=== PATIENT | female | born 1990 | race Caucasian/White ===

== ENCOUNTER 2018-04-18 16:23 | Emergency (ER) | END 2018-04-18 16:45 | disposition home or self-care (01) ==

== ENCOUNTER 2018-09-03 16:28 | Emergency (ER) | END 2018-09-03 20:25 | disposition left against medical advice (07) ==

== ENCOUNTER 2019-02-21 11:17 | Outpatient (CLI) | payer MEDICAID ==
[~2019-02-21] VITALS: Ht 157.5 cm; Wt 84.3 kg
[~2019-02-21 11:17] MED LIST: BEN25 PO; CEPH-443 PO; PNV1TABL43 PO
[2019-02-21 11:23] VITALS: Ht 157.5 cm; Wt 84.3 kg
--- NOTE | 2019-02-21 14:14 | PN ---
Triage Information Date/Time 02/21/2019 Reason for visit: Patient was sent in from clinic because of mild elevation of blood pressure and was complaining of decreased movement Weeks of Gestation 34+ weeks /Para 2 para 1 Additional information Patient has history of early termination at 34 weeks because of PIH Currently patient is denying headache blurred vision or epigastric pain Objective Blood pressures were all within normal limits during hospital stay Blood pressures were taken with patient in semi-negron position Heart Rate: 140's Heart Rate Comments Reactive Contractions: None Exam Deferred Results/Medications Result Diagram: 02/21/19 1142 02/21/19 1142 Results 24 hrs Laboratory Tests Test 02/21/19 11:28 02/21/19 11:42 Urine Color YELLOW Urine Clarity CLOUDY A Urine pH 7.0 Urine Specific [place] 1.009 Urine Ketones NEGATIVE Urine Nitrite NEGATIVE Urine Bilirubin NEGATIVE Urine Urobilinogen NEGATIVE Urine Leukocyte Esterase TRACE A Urine Microscopic RBC 1 Urine Microscopic WBC 3 Urine Bacteria FEW A Urine Hemoglobin NEGATIVE Urine Glucose NEGATIVE Urine Total Protein NEGATIVE White Blood Count 6.5 Red Blood Count 3.96 L Hemoglobin 11.7 L Hematocrit 35.3 L Mean Corpuscular Volume 89.1 Mean Corpuscular Hemoglobin 29.5 Mean Corpuscular Hemoglobin Concent 33.1 Red Cell Distribution Width 12.3 Platelet Count 206 Mean Platelet Volume 10.6 H Immature Granulocytes % 1.500 H Neutrophils % 69.7 Lymphocytes % 18.4 Monocytes % 9.0 Eosinophils % 0.9 Basophils % 0.5 Nucleated Red Blood Cells % 0.0 Immature Granulocytes # 0.100 H Neutrophils # 4.5 Lymphocytes # 1.2 Monocytes # 0.6 Eosinophils # 0.1 Basophils # 0.0 Nucleated Red Blood Cells # 0.0 Prothrombin Time 12.3 Prothrombin Time Ratio 1.0 INR International Normalized Ratio 0.90 Activated Partial Thromboplast Time 27.5 Sodium Level 138 Potassium Level 4.3 Chloride Level 108 Carbon Dioxide Level 23 Anion Gap 7 Blood Urea Nitrogen 9 Creatinine 0.50 Est Glomerular Filtrat Rate mL/min > 60 Glucose Level 100 Uric Acid 2.9 L Calcium Level 9.8 Total Bilirubin 0.1 L Direct Bilirubin 0.00 Indirect Bilirubin 0.1 Aspartate Amino Transf (AST/SGOT) 30 Alanine Aminotransferase (ALT/SGPT) 32 Alkaline Phosphatase 161 H Total Protein 6.6 Albumin 3.3 Globulin 3.30 H Albumin/Globulin Ratio 1.00 Imaging Results Normal biophysical profile. Disposition: Discharge Assessment/Plan Will discharge home and follow patient in clinic as routine DAHLIA BLACKBURN MD Feb 21, 2019 14:14
--- NOTE | 2019-02-21 18:39 | TRIAGE ---
OB Triage Datetime Report Generated by CPN: 02/21/2019 18:39 Datetime: 02/21/2019 14:30 Stage of : OB Triage Maternal Assessment Level of Consciousness: Fully Conscious DTR's/Clonus: DTRs 1+ Headache: Denies Breath Sounds, Left: Clear and Equal Breath Sounds, Right: Clear and Equal Nausea/Vomiting: Denies RUQ Epigastric Pain: Denies Monitor Mode: External Resting Tone [place]: Relaxed Heart Rate FHR Baseline Rate: 135 Monitor Mode: External US Variability: Moderate 6-25 bpm Accelerations: 15X15 Decelerations: None Category: Category I Pain Assessment Pain Scale: 0 Pain Presence: None/Denies Pain Type: N/A Pain Goal: 3 Vaginal Exam Membrane Status: Intact Datetime: 02/21/2019 13:30 Stage of : OB Triage Maternal Assessment Level of Consciousness: Fully Conscious DTR's/Clonus: DTRs 1+ Headache: Denies Breath Sounds, Left: Clear and Equal Breath Sounds, Right: Clear and Equal Nausea/Vomiting: Denies RUQ Epigastric Pain: Denies Monitor Mode: External Resting Tone [place]: Relaxed Heart Rate FHR Baseline Rate: 135 Monitor Mode: External US Variability: Moderate 6-25 bpm Accelerations: 15X15 Decelerations: None Category: Category I Pain Assessment Pain Scale: 0 Pain Presence: None/Denies Pain Type: N/A Pain Goal: 3 Vaginal Exam Membrane Status: Intact Datetime: 02/21/2019 12:30 Stage of : OB Triage Maternal Assessment Level of Consciousness: Fully Conscious DTR's/Clonus: DTRs 1+ Headache: Denies Breath Sounds, Left: Clear and Equal Breath Sounds, Right: Clear and Equal Nausea/Vomiting: Denies RUQ Epigastric Pain: Denies Monitor Mode: External Resting Tone [place]: Relaxed Heart Rate FHR Baseline Rate: 135 Monitor Mode: External US Variability: Moderate 6-25 bpm Accelerations: 15X15 Decelerations: None Category: Category I Pain Assessment Pain Scale: 0 Pain Presence: None/Denies Pain Type: N/A Pain Goal: 3 Vaginal Exam Membrane Status: Intact Datetime: 02/21/2019 11:52 Maternal Assessment Level of Consciousness: Fully Conscious DTR's/Clonus: DTRs 1+ Headache: Denies Blurred Vision: No Respiratory Effort: Unlabored Breath Sounds, Left: Clear and Equal Breath Sounds, Right: Clear and Equal Nausea/Vomiting: Denies RUQ Epigastric Pain: Denies Facial Edema: None Labor Evaluation Frequency: X2 Monitor Mode: External Duration (sec)2399: 60-70 Quality: Mild Pattern: Normal: <= 5 Contractions in 10 Minutes Resting Tone [place]: Relaxed Heart Rate FHR Baseline Rate: 145 Monitor Mode: External US Variability: Moderate 6-25 bpm Accelerations: 15X15 Decelerations: None Category: Category I Pain Assessment Pain Scale: 0 Pain Presence: None/Denies Pain Type: N/A Pain Goal: 3 Vaginal Exam Membrane Status: Intact Datetime: 02/21/2019 11:20 Stage of : OB Triage Assessment Type: Triage Maternal Assessment Level of Consciousness: Fully Conscious DTR's/Clonus: DTRs 2+; No Clonus Headache: Denies Blurred Vision: No Respiratory Effort: Unlabored; Regular Rhythm; Equal Expansion Breath Sounds, Left: Clear and Equal Breath Sounds, Right: Clear and Equal Nausea/Vomiting: Denies RUQ Epigastric Pain: Denies Facial Edema: None Fall Risk Assessment History of Falling: (0) No Secondary Diagnosis: (0) No Ambulatory Aid: (0) Bedrest/Nurse Assist IV Therapy: (0) No Gait: (0) Normal/Bedrest/Immobile Mental Status: (0) Oriented to Own Ability Fall Score: 0 Fall Risk Score Definition: No Risk: No action required Datetime: 02/21/2019 11:19 Time of Arrival: 02/21/2019 11:19 EGA: 34.2 Arrived By: Ambulatory Arrived From: Office Chief Complaint: PT CAME IN C/O DFM AND HAVING HIGH B/P AT CLINIC. PT SENIES HAVING EPIGASTRIC PAIN , HEADACHE, BLURRED VISION OR GENERALIZED SWELLING. Movement: Present Contractions: Denies/Absent Rupture of Membranes: Denies Vaginal Discharge: Denies Recent Sexual Intercouse: Denies Abdominal Trauma: Not Applicable Patient Complaints: Other Additional Patient Complaints: NONE Time Provider Notified: 02/21/2019 11:30 Provider Notified: HELENA Initial Plan: TR PANEL AND NST AND BPP
== END 2019-02-21 14:37 | disposition home or self-care (01) ==
LOC: L-D 11:17 → OBT 11:17
PROVIDERS: ATTEND Obstetrics & Gynecology
DX: O36.8130 Decreased fetal movements, third trimester, not applicable or unspecified (principal); O13.3 Gestational [pregnancy-induced] hypertension without significant proteinuria, third trimester; O09.93 Supervision of high risk pregnancy, unspecified, third trimester; Z3A.34 34 weeks gestation of pregnancy
CPT/HCPCS: 76818; 80053; 81001; 84560; 85025; 85610; 85730; Z7500; G0463

== ENCOUNTER 2019-03-31 06:19 | Inpatient (IN) | payer MEDICAID ==
[~2019-03-31] VITALS: Ht 167.6 cm; Wt 88.9 kg
[~2019-03-31 06:19] MED LIST changes: -BEN25 PO; -CEPH-443 PO
[2019-03-31 06:29] VITALS: BP 184/90; PULSE 62; RESP 18; Ht 167.6 cm; Wt 88.9 kg
[2019-03-31] MEDS ORDERED: LACTATED RINGER'S 1,000 ML IV SCH (06:48)
[2019-03-31] MEDS ORDERED: MAGNESIUM SULFATE 4 GM/100 ML 100 ML IV ONE (07:00)
[2019-03-31] MEDS ORDERED: OXYTOCIN 30 UNITS/LR 500 ML IV SCH ×2 (07:00)
[2019-03-31] MEDS ORDERED: METHYLERGONOVINE 0.2 MG INJ IM PRN (07:00)
[2019-03-31] MEDS ORDERED: BUTORPHANOL 2 MG INJ IV PRN (07:00)
[2019-03-31] MEDS ORDERED: LIDOCAINE 1% (MPF) 30 ML INJ INJ PRN (07:00)
[2019-03-31] MEDS ORDERED: CARBOPROST 250 MCG INJ IM PRN (07:00)
[2019-03-31] MEDS ORDERED: MISOPROSTOL 200 MCG TAB PR PRN (07:00)
[2019-03-31] MEDS ORDERED: OXYTOCIN 30 UNITS/LR 500 ML IV PRN (07:00)
[2019-03-31] MEDS: LACTATED RINGER'S 1,000 ML IV SCH ×3 (07:30→19:20)
--- NOTE | 2019-03-31 07:33 | TRIAGE ---
OB Triage Datetime Report Generated by CPN: 03/31/2019 07:32 Datetime: 03/31/2019 06:38 Vaginal Exam Dilatation (cms): 1.5 Effacement (%): 70 Station: -3 Exam By: SOLOMON Vaginal Bleeding: Normal Show Cervix, Consistency: Soft Cervix, Position: Posterior Presentation 'A': Cephalic Datetime: 03/31/2019 06:34 Stage of : OB Triage Maternal Assessment Level of Consciousness: Fully Conscious DTR's/Clonus: DTRs 2+; No Clonus Headache: Denies Blurred Vision: No Respiratory Effort: Unlabored; Regular Rhythm; Equal Expansion Breath Sounds, Left: Clear and Equal Breath Sounds, Right: Clear and Equal Nausea/Vomiting: Denies RUQ Epigastric Pain: Denies Facial Edema: None Temperature Route: Axillary Fall Risk Assessment History of Falling: (0) No Secondary Diagnosis: (0) No Ambulatory Aid: (0) Bedrest/Nurse Assist Gait: (0) Normal/Bedrest/Immobile Mental Status: (0) Oriented to Own Ability Datetime: 03/31/2019 06:21 Labor Evaluation Frequency: IRREGULAR Monitor Mode: External Quality: Mild Pattern: Normal: <= 5 Contractions in 10 Minutes Resting Tone [place]: Relaxed Heart Rate FHR Baseline Rate: 145 Monitor Mode: External US Datetime: 02/21/2019 14:32 Time of Arrival: 03/31/2019 06:07 EGA: 39.5 Arrived By: Ambulatory Arrived From: Home Chief Complaint: BLEEDING Movement: Decreased Contractions: Irregular Rupture of Membranes: Denies Vaginal Bleeding: Normal Show Vaginal Discharge: Denies Recent Sexual Intercouse: Denies Abdominal Trauma: Not Applicable Patient Complaints: Contractions Time Provider Notified: 03/31/2019 06:40 Provider Notified: Initial Plan: EFM, VS, VE, ADMIT TO l_D START MAGNESIUM SULFATE, PIH PANEL Datetime: 02/21/2019 11:20 Fall Score: 0 Fall Risk Score Definition: No Risk: No action required Datetime: 02/21/2019 11:19 EGA: 34.2
[2019-03-31] MEDS: MAGNESIUM SULFATE 20 GM/500 ML 500 ML IV SCH ×2 (08:59→19:06)
[2019-03-31] MEDS: OXYTOCIN 30 UNITS/LR 500 ML IV SCH (11:31)
--- NOTE | 2019-03-31 12:18 | HP ---
Date/Time of Note Date/Time of Note DATE: 03/31/19 TIME: 12:14 OB - History Hx of Present Free Text/Dictation 28-year-old female 2 para 1 at 39+ weeks gestation admitted complaining of onset spotting early a.m. 526 She also complains of decreased movement Chief Complaint: Spotting and decreased movement Last Menstrual Period: Jun 26, 2018 Estimated Due Date: April 02, 2019 : 2 Para: 1 Care: Good Care Ultrasounds: Normal mid trimester US Obstetrical Complications: None Medical Complications: None Past Family/Social History * Past Medical, Surgical, Family and Obstetric Histories reviewed from chart. Blood Type: O+ Rubella: immune RPR/VDRL: Negative GBS Status: Negative HBsAG: Negative OB Admission Exam Vital Signs Vital Signs Vital Signs Date Temp Pulse Resp B/P (MAP) Pulse Ox O2 O2 Flow FiO2 Time Delivery Rate 03/31/19 98.3 62 18 184/90 06:29 (121) Physical Exam HEENT: WNL Heart: Rhythm Normal Lungs: Clear, Equal Abdomen: WNL Extremities: Normal Reflexes: Normal Cervical Dilatation: 1cm Effacement: 50% Station: -3 Membranes: Intact Heart Rate: 140's Accelerations: Accelerations Present Decelerations: No Decelerations Varibility: Marked Contractions on Admission: < 5 Minutes Apart Date/Time Contractions Began: 03/31/2019 at 6 AM Frequency of Contractions: Every 2 to 3 minutes Duration: Over 1 minute Intensity: Moderate Last 72 hours Lab Results CBC & BMP 03/31/19 06:25 Liver Function Test 03/31/19 06:25 Alanine Aminotransferase (ALT/SGPT) 42 Albumin 3.2 L Alkaline Phosphatase 230 H Aspartate Amino Transf (AST/SGOT) 32 Direct Bilirubin 0.00 Total Protein 6.2 OB Assessment/Plan Other Assessment: Term gestation Labor contractions -induced hypertension by blood pressure criteria Other plan: Started patient on magnesium sulfate for seizure prophylaxis Augment labor with Pitocin if needed DAHLIA BLACKBURN MD March 31, 2019 12:18
[2019-03-31] MEDS ORDERED: FENTAnyl 2MCG/ML-ROPIV 0.2% 100 ML ONE (18:51)
--- NOTE | 2019-03-31 20:09 | PREAC ---
Date/Time of Note Date/Time of Note DATE: 03/31/19 TIME: 20:07 Anesthesia Eval and Record Evaluation Time Pre-Procedure Interview DATE: 03/31/19 TIME: 18:23 Age 28 Sex female NPO: 8 hrs Preoperative diagnosis iup @ 39 + wks., , pih by bp criteria, labor Planned procedure dc Past Medical History Past Medical History: Includes Cardio: HTN, Other (pih) : : (2), Para: (1), Gestational age: (39 + wks.), PIH Surgery & Anesthesia Issues No known issue Meds Anticoagulation: No Beta Jamey within 24 hr: No Reason Beta Jaemy not given: Pt. not on B-Jamey Reported Medications Vit/Fe Fumarate/Fa* ( Vitamin Tablet*) 1 Tab Tablet, 1 TAB PO DAILY 02/13/14 Current Medications Lactated Ringer's 1,000 ml @ 125 mls/hr Q8H IV Last administered on 03/31/19at 19:20; Admin Dose 125 MLS/HR; Start 03/31/19 at 07:00 Lidocaine (Xylocaine 1% (Mpf)) 30 ml ONCE PRN INJ .EPISIOTOMY; Start 03/31/19 at 07:00 Oxytocin/Lactated Ringer's 500 ml @ 500 mls/hr ONCE POST IV ; Start 03/31/19 at 07:00 Oxytocin/Lactated Ringer's 500 ml @ 125 mls/hr POST IV ; Start 03/31/19 at 07:00 Oxytocin/Lactated Ringer's 500 ml @ 0 mls/hr ONCE PRN IV .VAGINAL BLEEDING; Start 03/31/19 at 07:00 Methylergonovine Maleate (Methergine) 0.2 mg ONCE PRN IM .VAGINAL BLEEDING; Start 03/31/19 at 07:00 Carboprost Tromethamine (Hemabate) 250 mcg ONCE PRN IM .VAGINAL BLEEDING; Start 03/31/19 at 07:00 Misoprostol (Cytotec) 1,000 mcg ONCE PRN [place] .VAGINAL BLEEDING; Start 03/31/19 at 07:00 Magnesium Sulfate 500 ml @ 50 mls/hr Q10H IV Last administered on 03/31/19at 19:06; Admin Dose 50 MLS/HR; Start 03/31/19 at 06:48 Butorphanol Tartrate (Stadol) 2 mg Q2H PRN IV PAIN; Start 03/31/19 at 07:00 Oxytocin/Lactated Ringer's 500 ml @ 0 mls/hr FOR AUGMENTATION IV Last administered on 03/31/19at 11:31; Admin Dose 1 MLS/HR; Start 03/31/19 at 11:00 Meds reviewed: Yes Allergies Coded Allergies: No Known Drug Allergies (Unverified Allergy, Unknown, 03/31/19) Allergies Reviewed: Yes Labs/Studies Labs Reviewed: Reviewed by anesthesiologist Result Diagram: 03/31/1962403/31/1925 Laboratory Tests 03/31/19 06:25 Blood Bank Test 03/31/19 06:25 Antibody Screen NEGATIVE Blood Type O POSITIVE Rh Immune Globulin Candidate NO test: Positive Studies: ECG (n/a), CXR (n/a) Pre-procedure Exam Last vitals Vital Signs Date Temp Pulse Resp B/P (MAP) Pulse Ox O2 O2 Flow FiO2 Time Delivery Rate 03/31/19 98.3 62 18 184/90 06:29 (121) Airway: Adequate mouth opening, Adequate thyromental dist Mallampati: Mallampati II Teeth: Normal Lung: Normal Heart: Normal ASA Physical Status ASA physical status: 3 Emergency: E Planned Anesthetic Neuraxial: Epidural Planned Pain Management Epidural, Local by surgeon Pre-operative Attestations Prior to commencing anesthesia and surgery, the patient was re-evaluated, there was verification of: *The patient's identity *The results of appropriate recent lab work and preoperative vital signs *The above evaluation not changing prior to induction *Anesthetic plan, risk benefits, alternative and complications discussed with patient/family; questions answered; patient/family understands, accepts and wishes to proceed. Construction Framer used LEILA KIRBY MD March 31, 2019 20:09
[2019-03-31] MEDS ORDERED: EPHEDrine 25 MG/5 ML SYG ONE (21:35)
[2019-03-31] MEDS ORDERED: OXYTOCIN 30 UNITS/LR 500 ML IV ONE ×2 (21:37)
[2019-04-01] VITALS (11 sets, daily range): BP systolic 116–137; BP diastolic 57–84; PULSE 90–123; RESP 17–18
[2019-04-01] MEDS: MAGNESIUM SULFATE 20 GM/500 ML 500 ML IV SCH (03:23)
[2019-04-01] MEDS: OXYTOCIN 30 UNITS/LR 500 ML IV SCH (03:31)
[2019-04-01] MEDS ORDERED: FENTAnyl 2MCG/ML-ROPIV 0.2% 100 ML ONE (03:47)
[2019-04-01] MEDS ORDERED: NALOXONE (0.4 MG/ML) INJ IV PRN (04:00)
[2019-04-01] MEDS ORDERED: MINERAL OIL LIGHT 10 ML VIAL TOP PRN (04:00)
[2019-04-01] MEDS ORDERED: ONDANSETRON 4 MG INJ IV PRN (04:00)
[2019-04-01] MEDS: FENTAnyl 2MCG/ML-ROPIV 0.2% 100 ML BAG EPI SCH ×2 (04:10→10:27)
[2019-04-01] MEDS: LACTATED RINGER'S 1,000 ML IV SCH (08:53)
--- NOTE | 2019-04-01 12:03 | LDN ---
Date/Time of Note Date/Time of Note DATE: 04/01/19 TIME: 12:02 Delivery Summary Normal spontaneous vaginal delivery of a viable over intact perineum Weeks of Gestation 39 weeks and 6 days Placenta Delivered: Spontaneously, Intact & Complete Meconium: none Episiotomy: No Perineal laceration: 0 Laceration repair: First-degree perineal laceration was repaired in layers using 2-0 chromic on a CT1 needle Anesthesia type: Epidural Sponge & Needle done & correct: Yes All needle counts correct: Yes Any foreign bodies felt in the: No Infant Delivery Information Sex Sex: male Apgars 1 Minute: 9 5 Minute: 9 Suctioning Nose & mouth suctioned at roderick: Yes Delee suction performed: No Umbilical Cord Umbilical cord with: 3 Vessels Cord presentations: no nuchal cord Cord Blood was obtained: Yes Mother & Baby Disposition Disposition Mom & Baby to Maternity; Good: Yes (Mother and baby were recovered in good condition) Mom transferred to: Other (Maternity) Baby to NICU: No DAHLIA BLACKBURN MD April 01, 2019 12:03
[2019-04-01] MEDS ORDERED: KETOROLAC 30 MG INJ IV STA ×2 (12:04→12:07)
[2019-04-01] MEDS ORDERED: ACETAMINOPHEN 500 MG TAB PO STA ×2 (12:04→12:07)
--- NOTE | 2019-04-01 13:10 | PAC ---
Date/Time of Note Date/Time of Note DATE: 04/01/19 TIME: 13:09 Post-Anesthesia Notes Post-Anesthesia Note Last documented vital signs Vital Signs Date Temp Pulse Resp B/P (MAP) Pulse Ox O2 O2 Flow FiO2 Time Delivery Rate 03/31/19 98.3 62 18 184/90 06:29 (121) Activity: WNL Respiratory function: WNL Cardiovascular function: WNL Mental status: Baseline Pain reasonably controlled: Yes Hydration appropriate: Yes Nausea/Vomiting absent: Yes LEILA KIRBY MD April 01, 2019 13:10
[2019-04-01] MEDS ORDERED: MAGNESIUM SULFATE 20 GM/500 ML 500 ML IV SCH ×3 (13:48→17:12)
[2019-04-01] MEDS ORDERED: METHYLERGONOVINE 0.2 MG INJ IM PRN (14:00)
[2019-04-01] MEDS ORDERED: HYDROCODONE/APAP (5/325) TAB PO PRN ×2 (14:00)
[2019-04-01] MEDS ORDERED: BENZOCAINE 20% 56 ML SPRAY TOP PRN (14:00)
[2019-04-01] MEDS ORDERED: DIBUCAINE 1% 30 GM OINT TOP PRN (14:00)
[2019-04-01] MEDS ORDERED: OXYTOCIN 30 UNITS/LR 500 ML IV PRN (14:00)
[2019-04-01] MEDS ORDERED: ZOLPIDEM 5 MG TAB PO PRN (14:00)
[2019-04-01] MEDS ORDERED: WITCH HAZEL/GLYCERIN PAD PR PRN (14:00)
[2019-04-01] MEDS ORDERED: MISOPROSTOL 200 MCG TAB PR PRN (14:00)
[2019-04-01] MEDS ORDERED: CARBOPROST 250 MCG INJ IM PRN (14:00)
[2019-04-01] MEDS ORDERED: LANOLIN HPA 1 PKT TOP PRN (14:00)
[2019-04-01] MEDS ORDERED: MAGNESIUM SULFATE 4 GM/100 ML 100 ML IV SCH ×2 (17:00→17:30)
[2019-04-01] MEDS ORDERED: NACL 0.9% 3 ML SYG IV SCH ×2 (17:00→17:30)
[2019-04-01] MEDS ORDERED: CA GLUCONATE (GM) 10% 10ML INJ IV PRN ×2 (17:00→17:30)
[2019-04-01] MEDS: CEPHALEXIN 500 MG CAP PO SCH ×2 (17:24→23:39)
[2019-04-01] MEDS: LACTATED RINGER'S 1,000 ML IV* SCH ×2 (17:29→21:48)
[2019-04-01] MEDS: IBUPROFEN 600 MG TAB PO SCH ×2 (17:39→23:39)
[2019-04-01] MEDS: SENNA/DOCUSATE NA (8.6MG/50MG) TAB PO SCH (21:00)
[2019-04-01] MEDS: MAGNESIUM HYDROXIDE 30ML CUP PO SCH (21:00)
[2019-04-02] VITALS (14 sets, daily range): BP systolic 107–131; BP diastolic 57–79; PULSE 78–94; RESP 17–20
[2019-04-02] MEDS: IBUPROFEN 600 MG TAB PO SCH ×4 (06:39→23:59)
[2019-04-02] MEDS: CEPHALEXIN 500 MG CAP PO SCH ×4 (06:39→23:59)
[2019-04-02] MEDS: LACTATED RINGER'S 1,000 ML IV* SCH (06:45)
[2019-04-02] MEDS: MAGNESIUM HYDROXIDE 30ML CUP PO SCH ×2 (09:00→21:24)
[2019-04-02] MEDS: SENNA/DOCUSATE NA (8.6MG/50MG) TAB PO SCH ×2 (09:38→21:24)
--- NOTE | 2019-04-02 18:18 | DS ---
Date/Time of Note Date/Time of Note Home today or next day DATE: 04/02/19 TIME: 18:17 Obstetrical Discharge Record Final Diagnosis Final Diagnosis: Term delivered Other Final Diagnosis Status post vaginal delivery Vaginal Delivery Obstetrical Delivery: Spontaneous, Laceration, Repaired Complications Augmentation: Yes Induction: Yes Condition on Discharge Physical Assessment Last Vitals: See nurse's notes Voiding: Yes Bowel Movement: Yes Breast: Soft, non-tender, Filling Fundus: Firm Abdomen and Incision: Abdomen is soft with firm fundus Episiotomy: Perineum is healing well and appears clean Calf Tenderness: No Patient Condition: Good DAHLIA BLACKBURN MD April 02, 2019 18:18
--- NOTE | 2019-04-02 18:22 | PD.PPDC ---
[employer] Discharge Instruction Provider Information Physician Information 28-year-old female had vaginal delivery Diagnosis [id number] Final Diagnosis: [id number] Status post vaginal delivery Condition [id number] Patient Condition: [id number] Good Diet [id number] Diet: Dlgbt9g Resume Regular Diet Activity/Restrictions [id number] Activity: [id number] Normal Activity May Shower [id number] Restrictions: Lrhih7n Nothing in the Vagina [id number] Return to Work or School: [id number] May 20, 2019 Follow-up Follow-up with Physician: 2, Day/Days Return to clinic for [id number] OB Instructions: [id number] Breast Tenderness (In clinic for blood pressure check) Depression Blurried Vision Headache Comment: Pelvic rest for 6 weeks Referred to clinic in 2 days for blood pressure check DAHLIA BLACKBURN MD April 02, 2019 18:22
[2019-04-02] MEDS ORDERED: IBUP-1542 PO (18:23)
[2019-04-03 03:15] VITALS: BP 140/83; PULSE 98
[2019-04-03] MEDS: CEPHALEXIN 500 MG CAP PO SCH ×2 (05:45→12:07)
[2019-04-03] MEDS: IBUPROFEN 600 MG TAB PO SCH ×2 (05:45→12:06)
[2019-04-03 08:29] VITALS: BP 117/73; PULSE 76; RESP 20
[2019-04-03] MEDS ORDERED: MEASLES,MUMPS,RUBELLA VACCINE INJ SC* ONE (09:00)
[2019-04-03] MEDS ORDERED: DIPHTH/TET/ACEL PERTUSS (ADULT) 0.5 ML VIAL IM* ONE (09:00)
[2019-04-03] MEDS ORDERED: VARICELLA VACCINE LIVE/PF 1,350 UNIT/0.5 ML ML SC* ONE (09:00)
[2019-04-03] MEDS: SENNA/DOCUSATE NA (8.6MG/50MG) TAB PO SCH (09:59)
[2019-04-03] MEDS: MAGNESIUM HYDROXIDE 30ML CUP PO SCH (09:59)
--- NOTE | 2019-04-04 15:47 | DELSUM ---
Delivery Summary A-C Datetime Report Generated by CPN: 04/04/2019 15:46 DELIVERY PERSONNEL Transition Mgr: Wells, [place] MATERNAL INFORMATION Delivery Anesthesia: Epidural Medications in Delivery: PITOCIN , hemabate, cytotec Delivery QBL (ml): 400 Placenta Cultured: No Maternal Complications: Other Other Maternal Complications: pih LABOR SUMMARY EDC: 04/02/2019 00:00 No. Babies in Womb: 1 Attempted: No Labor Anesthesia: Epidural LABOR INFORMATION Reason for Induction: Gest. HTN/PreEclam/Eclamp Onset of Labor: 03/31/2019 11:30 Complete Dilatation: 04/01/2019 11:16 Oxytocin: Augmentation Group B Beta Strep: Negative Antibiotics # of Doses: 0 Steroids Given: None Reason Steroids Not Administered: Not Applicable MEMBRANES Membranes Rupture Method: Spontaneous Rupture of Membranes: 04/01/2019 11:16 Length of Rupture (hr): 0.38 Amniotic Fluid Color: Clear Amniotic Fluid Amount: Small Amniotic Fluid Odor: None STAGES OF LABOR Stage 1 hr: 23 Stage 1 min: 46 Stage 2 hr: 0 Stage 2 min: 23 Stage 3 hr: 0 Stage 3 min: 3 Total Time in Labor hr: 24 Total Time in Labor min: 12 VAGINAL DELIVERY Episiotomy: None Laceration Extension: First Degree Laceration Type: Perineal Laceration Repair: Yes Initial Vag Sponge Count: 10 Final Vag Sponge Count: 10 Initial Vag Sharps Count: 1 Final Vag Sharps Count: 2 Sponge Count Correct: Yes; Vaginal Sweep Performed Sharps Count Correct: Yes Count Comment: added 1 sharp BABY A INFORMATION Delivery Date/Time: 04/01/2019 11:39 Method of Delivery: Vaginal Born in Route : No : N/A Forceps: N/A Vacuum Extraction: N/A Shoulder Dystocia : N/A SHOULDER DYSTOCIA BABY A Infant Delivery Date/Time: 04/01/2019 11:39 PRESENTATION/POSITION BABY A Presentation: Cephalic Cephalic Presentation: Vertex Vertex Position: Left Occipital Anterior Breech Presentation: N/A PLACENTA INFORMATION BABY A Placenta Delivery Time : 04/01/2019 11:42 Placenta Method of Delivery: Spontaneous Placenta Status: Delivered SCORES BABY A Heart Rate 1 min: >100 bpm Resp Effort 1 min: Good Cry Reflex Irritability 1 min: Cough/Sneeze/Pulls Away Muscle Tone 1 min: Active Motion Color 1 min: Body [place], Extremit Blue Resuscitation Effort 1 min: Tactile Stimulation SCORE 1 MIN: 9 Heart Rate 5 min: >100 bpm Resp Effort 5 min: Good Cry Reflex Irritability 5 min: Cough/Sneeze/Pulls Away Muscle Tone 5 min: Active Motion Color 5 min: Body [place], Extremit Blue SCORE 5 MIN: 9 INFANT INFORMATION BABY A Gestational Age at Delivery: 39.6 Gestational Status: Full Term- 39- 40.6 Weeks Infant Outcome : Liveborn Infant Condition : Stable Infant Sex: Male IDENTIFICATION/MEDS BABY A ID Band Number: [id number] ID Band Location: Right Leg; Left Arm Sensor Applied: Yes Sensor Number: [id number] Sensor Location : Cord Clamp Vitamin K Given : Not Given Erythromycin Given: Not Given WEIGHT/LENGTH BABY A Birthweight (gm): 3700 Infant Weight (lb): 8 Infant Weight (oz): 3 Infant Length (in): 20.50 Infant Length (cm): 52.07 CORD INFORMATION BABY A No. Cord Vessels: 3 Nuchal Cord : N/A Cord Blood Taken: Yes Infant Suction: Mouth; Nose
== END 2019-04-03 14:45 | disposition home or self-care (01) | DRG 807 ==
LOC: OBT 06:19 → L-D 06:20 → OBT 06:40 → PP1 04-01 13:29
PROVIDERS: ADMIT Obstetrics & Gynecology; ATTEND Obstetrics & Gynecology
PROC: 10E0XZZ Delivery of Products of Conception, External Approach (ICD-10-PCS; principal; 2019-04-01)
PROC: 0HQ9XZZ Repair Perineum Skin, External Approach (ICD-10-PCS; 2019-04-01)
DX: O76 Abnormality in fetal heart rate and rhythm complicating labor and delivery (principal); Z37.0 Single live birth; O13.4 Gestational [pregnancy-induced] hypertension without significant proteinuria, complicating childbirth; O70.0 First degree perineal laceration during delivery; Z3A.39 39 weeks gestation of pregnancy
CPT/HCPCS: 36415; 62322; 76815; 76818; 80053; 81001; 82962; 83735; 84560; 85025; 85610; 85730; 86592; 86850; 86900; 86901; 87340; 90716; G0463; J1885; J2590; J3010; J3475; J7120